=== PATIENT | male | born 1965 | race Caucasian/White ===

== ENCOUNTER 2017-09-11 22:42 | Emergency (ER) | payer MEDICAID ==
[~2017-09-11] VITALS: Ht 175.3 cm; Wt 68.0 kg
[~2017-09-11 22:42] MED LIST: HYDR-4001 PO
[2017-09-11] MEDS ORDERED: SODIUM CHLORIDE 0.9% 1,000 ML IV ONE (23:31)
[2017-09-11] MEDS ORDERED: PANTOPRAZOLE SODIUM 40 MG/VIAL IV STA (23:31)
[2017-09-11] MEDS ORDERED: ONDANSETRON HCL 4MG/2ML VIAL IV STA (23:31)
[2017-09-11 23:56] LABS: BASOPHILS % 1.1 % (0.0-2.0); HEMATOCRIT. 29.7 % (42.0-52.0); HEMOGLOBIN. 9.7 g/dL (14.0-18.0); LYMPHOCYTES % 14.4 % (20.0-50.0); MEAN CORPUSCULAR HEMOGLOBIN 27.1 pg (28.0-32.0); MEAN CORPUSCULAR VOLUME 83.1 fL (80.0-94.0); MEAN PLATELET VOLUME 7.6 fl (7.4-10.4); MONOCYTES % 8.5 % (2.0-8.0); PLATELET 376 x1000/uL (130-400); RED BLOOD CELL COUNT 3.57 mill/uL (4.7-6.1)
[2017-09-12 00:03] LABS: CHLORIDE 105 mEq/L (98-107); INR 1.2; PROTHROMBIN TIME 12.8 sec (9.4-11.6)
[2017-09-12 00:07] LABS: ETHANOL BLOOD < 10 mg/dL
[2017-09-12 02:08] VITALS: BP 116/81
== END 2017-09-12 02:09 | disposition home or self-care (01) ==
LOC: ER 22:42
DX: J90 Pleural effusion, not elsewhere classified (principal); R10.9 Unspecified abdominal pain; I50.9 Heart failure, unspecified; I31.3 Pericardial effusion (noninflammatory); K52.9 Noninfective gastroenteritis and colitis, unspecified; Q63.1 Lobulated, fused and horseshoe kidney; K59.00 Constipation, unspecified
CPT/HCPCS: 36415; 71045; 74176; 80053; 83605; 83690; 83880; 84484; 85025; 85610; 93005; 96361; 96374; 96375; 99285; C9113; G0482; J2405; J7030; Z7610